=== PATIENT | female | born 1940 | race Caucasian/White ===

== ENCOUNTER → 2016-08-17 | Outpatient (CLI) | payer OTHER | LOC: MMPC 11:11 | PROVIDERS: ATTEND Internal Medicine | DX: E11.9 Type 2 diabetes mellitus without complications (principal); I50.9 Heart failure, unspecified; E78.5 Hyperlipidemia, unspecified; I48.2 Chronic atrial fibrillation | CPT/HCPCS: 83037; 99214; G0463 ==

== ENCOUNTER 2017-02-18 04:09 | Inpatient (IN) ==
[2017-02-18] MEDS ORDERED: Sodium Chloride 0.9% 1,000 ML PRIMARY IV ONE (04:28)
[2017-02-18] MEDS ORDERED: NORMAL SALINE 10 ML SYRINGE FLUSH IVP PRN ×2 (04:28→09:17)
--- NOTE | 2017-02-18 04:39 | PDOC ---
General Adult HPI - General Chief Complaint: Fall Stated Complaint: fall Date Seen by Provider: 02/18/17 Time Seen by Provider: 04:25 Source: POSITIVE: Patient Exam Limitations: POSITIVE: No limitations Nurse's Notes Reviewed & Considered: Yes - History of Present Illness Initial Comment: The patient is a 76-year-old female who is brought to the emergency department after she had fallen at home. She has a life alert that she activated after she had fallen in the bathroom and was unable to get up. She states that for the past week she has had increased pain with urination and blood in her urine. For that period of time she has also had subjective fevers and chills. She reports that she has become progressively weak. This morning she was in the bathroom and fell on the ground. She states this was a light fall. She was weak and unable to get up on her own and subsequently activated the life alert. She did not hit her head and denies any injury from the fall. She did not lay on the floor for a longer than 20 minutes. She denies any current chest pain or increased shortness of breath. She denies any current abdominal pain. She has had a cough which is occasionally productive. She is diabetic and states that she does not test her blood sugars. She does take eliquis for atrial fibrillation. She is also on digoxin. Have you received a tetanus shot in the past 10 years?: Yes - Patient Home Medications Home Medications: Home Medications Apixaban [Eliquis] 5 mg PO BID #180 tab 08/17/16 digoxin 125 mcg tablet 125 mcg PO QAM #90 tab 12/01/16 metoprolol tartrate 25 mg tablet 25 mg PO BID #180 tab 12/14/16 potassium chloride ER 20 mEq tablet,extended release(part/cryst) 20 meq PO QAM # 90 tab 12/14/16 omeprazole 40 mg capsule,delayed release 40 mg PO QDAY #30 cap 01/26/17 lisinopril 10 mg tablet 10 mg PO QDAY tab 02/15/17 metformin ER 750 mg tablet,extended release 24 hr 750 mg PO ONCE #90 tab Aspirin Chewable Tab 162 mg PO DAILY 02/18/17 - Patient Allergies Allergies/Adverse Reactions: Allergies 3 Allergy/AdvReac Type Severity Reaction Status Date / Time iodine [Iodine] Allergy Intermediate ITCHING Verified 02/18/17 04:24 Past Medical History - heen HEENT History: Denies History Cardiovascular History: Hypertension, Arrhythmia, Valvular Heart Disease Additional Cardiovasular History: Patient states she had rheumatic fever as a child, pt has chronic a-fib Respiratory History: Pneumonia Gastrointestinal History: Denies History Genitourinary History: Kidney Stones, Other (please comment) Additional Genitourinary History: STATES BLADDER STONE REMOVED IN 1967 Endocrine History: Denies History Musculoskeletal History: Arthritis Prosthesis or Implant: No Neurological History: CVA Additional Neurological History: STATES 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, has left sided weakness Blood Disorders: Denies History Psychiatric History: Denies History History of Sexually Transmitted Diseases: No Cancer History: Denies History History of MDRO: Yes History of Other Communicable Diseases: No Alcohol Use: None In the Past 12 Months, Have Used or Abuse Any Substance: None Previous Surgical History: Yes Type / Date of Surgery: BLADDER STONE REMOVED IN 1967, mitral valvuloplasty, total abdominal hysterectomy and bilateral oophorectomy and incedental appendectomy due to "a coil wrapped around my uterus" (?) Anesthesia Reactions: No Malignant Hyperthermia: No Significant Family History: Heart disease, Hypertension Past Medical History Reviewed: Reviewed - No Changes ROS - Limitations ROS Limitations: No Limitations Constitution: REPORTS: Chills, Fever, Weakness (Generalized) Cardiovascular: DENIES: Chest Pain, Heart Palpitations Respiratory: REPORTS: Cough Non Productive, Cough Productive. DENIES: Shortness Of Breath Neurological: DENIES: Headache Gastrointestinal: REPORTS: Diarrhea. DENIES: Abdominal Pain, Nausea, Vomitting , Black Stools, Bloody Stools Musculoskeletal: REPORTS: Denies MS Symptoms Genitourinary: REPORTS: Dysuria, Hematuria Eyes: REPORTS: Denies Symptoms ENT: REPORTS: Denies Symptoms Skin: DENIES: Rash General Adult Exam - General Appearance General Appearance: POSITIVE: Alert, Cooperative, No Acute Distress - HEENT HEENT: POSITIVE: Head Inspection Nml, Eyes Inspection Nml, Ears Inspection Nml, Dry Mucous Membranes - Respiratory Respiratory: POSITIVE: No Respiratory Distress, Breath Sounds Normal - Cardiovascular Cardiovascular: POSITIVE: Tachycardia, Murmur Peripheral Pulses: Dorsalis-pedis (R): 2+, Dorsalis-pedis (L): 2+ - Abdomen Abdomen: Soft: (All Quadrants), Denies Tenderness: (All Quadrants), No Distention: (All Quadrants) - Back Back: POSITIVE: Normal Inspection - Skin Skin: POSITIVE: Normal Color, No Rash - Extremities Extremity: Normal ROM: (All Extremities), Normal Inspection: (All Extremities) - Neurological / Psychological Neurological: POSITIVE: Oriented X3, Motor Normal, Sensation Normal General Adult Progress - Results Reviewed by me Xrays/CTs/US Reviewed by me: Yes Radiology Findings: Chest x-ray shows no obvious infiltrate. Lab Results Reviewed by Me: Yes CBC and BMP: 02/18/17 04:40 02/18/17 04:40 EKG Interpreted/Reviewed By Me:: Yes EKG Interpretation:: POSITIVE: Other (EKG shows atrial fibs/flutter with a rate of 120) - Patient's Progress MDM / ED Course: An IV was established, blood cultures and lactate were drawn with IV start. She did receive a 1 L bolus of normal saline. EKG shows A. fib/flutter with a rate of 120. Blood work reveals a normal white count and normal electrolytes. Her CPK is elevated above 2000. Urinalysis shows greater than 100 reds and 60- 80 whites. Urine culture is pending. The patient has generalized weakness and dehydration secondary to a UTI. At this point it seems most appropriate to admit the patient for further treatment. This was discussed with the patient and she is in agreement with this plan. Dr. Everett has agreed to admit the patient. She was started on Rocephin for treatment of UTI. - Consult Counseled: POSITIVE: Patient, RE: Lab Results, RE: Radiology Results, RE: DX Patient Care Time - Estimated PCT Patient Care Time (In Minutes): 35 Vital Signs - Recent Vital Signs Vital Signs: Vital Signs (Last 8 hours) Temp Pulse Resp BP Pulse Ox 02/18/17 05:05 120 H 20 91 02/18/17 04:40 98.3 F 121 H 20 130/79 89 02/18/17 04:10 98.3 F 121 H 20 130/79 89 - VS Reviewed Vital Signs Reviewed: Yes Discharge Clinical Impression: Atrial fibrillation, chronic, History of CVA (cerebrovascular accident), UTI ( urinary tract infection), Elevated CPK Discharge Disposition: Admit to Inpatient Condition: Fair Follow Up With: ELSI ORTEGA [Primary Care Provider] - Date Decision to Admit to Inpatient: 02/18/17 Time Decision to Admit to Inpatient: 07:00
--- NOTE | 2017-02-18 04:46 | EKG ---
[address] [place] [address] Measurements Intervals [place] Rate: 120 P: VA: 0 QRS: 92 QRSD: 122 T: -80 QT: 331 QTc: 402 Interpretive Statements ATRIAL FLUTTER/TACHYCARDIA WITH RAPID VENTRICULAR RESPONSE RIGHT BUNDLE BRANCH BLOCK LEFT VENTRICULAR HYPERTROPHY AND ST-T CHANGE POSSIBLE SEPTAL MYOCARDIAL INFARCTION , PROBABLY OLD Compared to ECG 02/22/2015 12:03:46 Right bundle-branch block now present Left ventricular hypertrophy now present Myocardial infarct finding now present ST (T wave) deviation still present Electronically Signed On 02-18-17 14:14:45 [facility] by Ramy Murphy [email or web address]
[2017-02-18 05:01] LABS: Hematocrit [HCT] 33.7 % (37.0-47.0); Hemoglobin [HGB] 10.9 g/dL (12.0-16.0); MEAN CORPUSCULAR HEMOGLOBIN 28.8 PG (27-31); MEAN CORPUSCULAR VOLUME 89 FL (81-99)
[2017-02-18 05:02] LABS: BASOPHILS # (AUTO) 0.01 10*3/UL; BASOPHILS % (AUTO) 0.2 % (0-1); EOSINOPHILS # (AUTO) 0.04 10*3/UL; EOSINOPHILS % (AUTO) 0.7 % (0-8); LYMPHOCYTES # (AUTO) 0.46 10*3/uL; MEAN CORPUSCULAR HGB CONC 32.5 g/dL (33-37); MEAN PLATELET VOLUME 7.6 FL (7.4-12.2); MONOCYTES # (AUTO) 0.48 10*3/UL (0.3-0.8); MONOCYTES % (AUTO) 7.9 % (5-15); NEUTROPHILS # (AUTO) 5.05 10*3/UL; NEUTROPHILS % (AUTO) 83.6 % (50-80); PLATELET MORPHOLOGY COMMENT NORMAL MORPHOLOGY (NORM); RBC MORPHOLOGY COMMENT NORMAL MORPHOLOGY (NORM); WBC MORPHOLOGY COMMENT NORMAL MORPHOLOGY (NORM)
[2017-02-18 05:08] LABS: BLOOD UREA NITROGEN 15 mg/dL (7-22); BUN/CREATININE RATIO 16.66 (6-20); MAGNESIUM 1.6 mg/dL (1.6-2.4)
[2017-02-18 06:14] LABS: RBC,URINE >100 /hpf; SQUAMOUS EPITHELIAL CELL,UR FEW; WBC,URINE 60-80
[2017-02-18 06:15] LABS: BACTERIA,URINE MANY; RENAL EPITHELIAL CELLS,URINE FEW; URINE CRYSTALS MODERATE
[2017-02-18] MEDS ORDERED: cefTRIAXone Inj 1 GM in Sodium Chloride 0.9% 100 ML IV ONE (07:00)
--- NOTE | 2017-02-18 09:04 | PDOC ---
HPI - History of Present Illness Date of Service: 02/18/17 Time of Service: 09:00 Chief Complaint: Fell last night, blood in the urine History of Present Illness: This is a 76 years old female with medical history significant for history of atrial fibrillation, hypertension, history of previous multiple strokes, history of previous mitral valve surgery and history of previous kidney stone and previous admission for UTI who was brought to the hospital because of a fall. She said she fell at home as she was changing her pad she said she didn't hurt herself but she was unable to get up. Because of that she activated her life alert and the medics brought her here to the hospital. In addition she did report blood in the urine she is denying though dysuria. She was weak and that' s why she was unable to get up. Evaluation in the ER revealed in addition to the hematuria an abnormal UA so she was given antibiotics and fluids and was admitted. She denied abdominal pain or dysuria. She has some cough but she said that's old. Past Medical History Medical History: 1. A. fib.2. Hypertension.3. Multiple strokes last one showed maybe 10-20 years ago the first she said she had it when she was 34 years old.4. History of multiple kidney stones.5. History of diabetes. 6. Admission in September 2014 for pneumonia 7. History of Escherichia coli bacteremia in 2013 secondary to urinary tract infection from an underlying right kidney stone Surgical History: 1. Mitral valvuloplasty.2. History of hysterectomy.3. History of appendectomy.4. History of kidneys stones with history of stent insertion and removal before. Family History: Reviewed an Not Pertinent Past Social History: Doesn't smoke, doesn't drink nor drugs. Lives in [facility]. She has 3 children. Tobacco Use: Never Smoker Do you dip or chew tobacco: No In the Past 12 Months, Have Used or Abuse Any of the Following Substance: None Alcohol Use: None Medication / Allergies Home Medications: Home Medications Medication Instructions Recorded Confirmed Type Apixaban [Eliquis] 5 mg PO BID #180 tab 08/17/16 02/18/17 Rx digoxin 125 mcg tablet 125 mcg PO QAM #90 tab 12/01/16 02/18/17 Rx metoprolol tartrate 25 mg tablet 25 mg PO BID #180 tab 12/14/16 02/18/17 Rx potassium chloride ER 20 mEq 20 meq PO QAM #90 tab 12/14/16 02/18/17 Rx tablet,extended release(part/cryst) omeprazole 40 mg capsule,delayed 40 mg PO QDAY #30 cap 01/26/17 02/18/17 Rx release lisinopril 10 mg tablet 10 mg PO QDAY tab 02/15/17 02/18/17 History metformin ER 750 mg 750 mg PO ONCE #90 tab 02/15/17 02/18/17 Rx tablet,extended release 24 hr Aspirin Chewable Tab 162 mg PO DAILY 02/18/17 02/18/17 History Allergies/Adverse Reactions: Allergies 3 Allergy/AdvReac Type Severity Reaction Status Date / Time iodine [Iodine] Allergy Intermediate ITCHING Verified 02/18/17 08:51 Review of Systems - Review of Systems All Systems: Reviewed & No Additional Complaints Except as Stated Exam - Vitals Vital Signs: Vital Signs Temperature 99.8 F Temperature Source Oral Pulse Rate [Pulse Oximeter 110 Left] Respiratory Rate 22 Blood Pressure [Left Arm] 133/78 Pulse Ox 99 Oxygen Flow Rate 2 Oxygen Delivery Method Nasal Cannula Weight 160 lb 1.6 oz - General General Appearance: No Acute Distress, Cooperative - Head Head Exam: Normal Inspection - Eye Eye Exam: POSITIVE: Normal Appearance - ENT ENT Exam: POSITIVE: Mucous Membranes Dry - Neck Neck Exam: Normal Inspection - Respiratory Additional Respiratory Exam Details: Harsh breath sound here. No crackles. - Cardiovascular Cardiovascular Exam: POSITIVE: Irregular Rhythm, Tachycardia, Systolic Murmur - GI/Abdominal GI/Abdominal Exam: POSITIVE: Normal Bowel Sounds, Non Tender, Non Distended, Soft, No Organomegaly - Rectal Rectal Exam: POSITIVE: Deferred - External Exam: POSITIVE: Deferred - Extremities Extremities Exam: POSITIVE: Normal Inspection - Back Back Exam: POSITIVE: Normal Inspection - Neurological Neurological Exam: POSITIVE: Alert, Oriented x 3, CN II-XII Intact Additional Neurological Exam Details: She has dysarthria and left lower leg weakness which is old. However she generally weak also. She has a left facial droop also - Psychiatric Psychiatric Exam: POSITIVE: Normal Affect - Integumentary Integumentary Exam: POSITIVE: Dry Results - Labs CBC and BMP: 02/18/17 04:40 02/18/17 04:40 Assessment and Plan - Patient Problems (1) UTI (urinary tract infection) Current Visit: Yes Status: Acute Comment: she has UTI. But because of the predominant hematuria will do a CT of her abdomen to look for stones. She does have a history of stones and she said she had some surgery for it although I don't have a documentation of it. She got the Rocephin will puts her on Zosyn and continue with IV fluid. Code(s): N39.0 - Urinary tract infection, site not specified (2) Atrial fibrillation, chronic Current Visit: Yes Status: Acute Comment: Rate is not controlled will give her medication part of it being uncontrolled may be secondary to the dehydration/infection will give us her fluid. Code(s): I48.2 - Chronic atrial fibrillation (3) Rhabdomyolysis Current Visit: No Status: Acute Comment: There is mild rhabdomyolysis from the fall she is on fluid will repeat her labs Code(s): M62.82 - Rhabdomyolysis (4) Diabetes Current Visit: Yes Status: Acute Comment: We'll hold her metformin for now. We'll check her blood sugar. Code(s): E11.9 - Type 2 diabetes mellitus without complications
[2017-02-18] MEDS ORDERED: LIDOCAINE W/ SODIUM BICARB 0.5 ML SYR SUBD PRN (09:17)
[2017-02-18] MEDS ORDERED: Metoprolol TARTRATE Tab 25 MG TAB PO SCH (09:20)
[2017-02-18] MEDS ORDERED: DIGOXIN 125 MCG TABLET PO SCH (09:30)
[2017-02-18] MEDS ORDERED: OMEPRAZOLE 40 MG CAPSULE PO SCH (09:30)
[2017-02-18] MEDS ORDERED: Sodium Chloride 0.9% 1,000 ML PRIMARY IV SCH (09:30)
[2017-02-18 10:15] VITALS: RESP 20
[2017-02-18] MEDS ORDERED: ACETAMINOPHEN 325 MG TABLET PO PRN (11:35)
[2017-02-18] MEDS ORDERED: Piperacillin/Tazobactam Inj 3.375 GM in Sodium Chloride 0.9% 100 ML IV SCH ×2 (11:45→12:00)
[2017-02-18] MEDS ORDERED: Piperacillin/Tazobactam Inj 4.5 GM in Sodium Chloride 0.9% 100 ML IV SCH (11:45)
--- NOTE | 2017-02-18 14:59 | DI ---
CT Abdomen/Pelvis WO Contrast,02/18/2017 9:22 AM: Clinical History: Hematuria. Previous Exam: February 17, 2015 Findings: Multiple helically acquired CT images are obtained through the abdomen and pelvis without contrast, a nd demonstrate stones within the dilated renal pelves bilaterally. There are multiple other renal parenchymal stones seen. The obstructive stones within each kidney are seen at the ureteropelvic junction. The one on the right measures 1 cm in long axis. The obstructive stone on the left measures 8 mm in diameter. There is a large simple cyst noted exophytic within the left kidney stable from the prior exam. There is some perinephric fat stranding noted. The liver and spleen are unremarkable. Subsegmental atelectasis is seen in the lung bases. There is m assive cardiomegaly which is unchanged. There is no free air nor free fluid. The urinary bladder is unremarkable. Skeletal structures are unremarkable except for some loss of int ervertebral disc height at multiple levels and endplate osteophyte formation. There is facet arthropa thy noted as well there are bilateral L5 pars defects as well. Impression: Large partially obstructive stones within the ureteropelvic junctions bilaterally. These appear too l arge to pass. Recommend consultation with urology for possible lithotripsy.
[2017-02-18 16:43] VITALS: BP 109/52; TEMP 98.6; O2SAT 97
--- NOTE | 2017-02-18 16:51 | DCSUMMARY ---
Hospitalization Summary Admit Date: 02/18/2017 Discharge Date: 02/18/17 Hospital Course: Transfer diagnoses 1. UTI looks like pyelonephritis 2. Large partially obstructive stones within the ureteropelvic junctions bilaterally 3. History of A. fib 4. History of multiple strokes that caused predominantly left leg weakness 5. History of Escherichia coli bacteremia in 2013 6. History of kidney stones before 7. History of Mitral valvuloplasty Hospital course This is a 76 years old female with medical history significant for history of atrial fibrillation, hypertension, history of previous multiple strokes, history of previous mitral valve surgery and history of previous kidney stone and previous admission for UTI who was brought to the hospital because of a fall. She said she fell at home as she was changing her pad she said she didn't hurt herself but she was unable to get up. Because of that she activated her life alert and the medics brought her here to the hospital. In addition she did report blood in the urine she is denying though dysuria. She was weak and that' s why she was unable to get up. Evaluation in the ER revealed in addition to the hematuria an abnormal UA so she was given antibiotics and fluids and was admitted. She denied abdominal pain or dysuria. She had some cough but she said that's old. When I saw her exam was remarkable for looking dry. She had some weakness mostly in the left lower extremity. She had also some left facial droop which is old old. We started her on Zosyn. She did already received Rocephin in the ER. While she was here her temperature went up to 101.4. She was initially tachycardic flutter/fibrillation but with fluid and by giving her, her usual medication the rate did come down. I did a CT of the abdomen because of her history of previous kidney stones and that did show large partial obstructive stones within the ureteropelvic junctions bilaterally. Because of that I did speak with the urologist at [facility] and he suggested transfer for stent insertion. I did speak with the hospitalist Dr. Brantley and he accepted the patient the patient will be transferred at one point in time. I did explain that to the patient and she agreed on transfer. Laboratory Results 02/18/17 02/18/17 02/18/17 Range/Units 04:30 04:40 04:40 WBC 6.0 (4.8-10.8) 10^3/uL RBC 3.80 L (4.20-5.40) 10^6/uL Hgb 10.9 L (12.0-16.0) g/dL Hct 33.7 L (37.0-47.0) % MCV 89 (81-99) FL MCH 28.8 (27-31) PG MCHC 32.5 L (33-37) g/dL RDW Coeff of Silvestre 13.6 (11.5-14.5) % Plt Count 232 (140-350) 10*3/uL MPV 7.6 (7.4-12.2) FL Neut % (Auto) 83.6 H (50-80) % Lymph % (Auto) 7.6 L (10-50) % Garrard % (Auto) 7.9 (5-15) % Eos % (Auto) 0.7 (0-8) % Baso % (Auto) 0.2 (0-1) % Neut # (Auto) 5.05 10*3/UL Lymph # (Auto) 0.46 10*3/uL Garrard # (Auto) 0.48 (0.3-0.8) 10*3/UL Eos # (Auto) 0.04 10*3/UL Baso # (Auto) 0.01 10*3/UL WBC Morphology Comment Normal morphology (NORM) Plt Morphology Comment Normal morphology (NORM) RBC Morph Comment Normal morphology (NORM) PT 11.4 (9.7-11.4) secs INR 1.07 (0.00-5.90) N/A Sodium (135-145) meq/L Potassium (3.8-5.2) meq/L Chloride (98-112) meq/L Carbon Dioxide (23-33) meq/L Anion Gap (5-20) BUN (7-22) mg/dL Creatinine (0.50-1.20) mg/dL BUN/Creatinine Ratio (6-20) Glucose (78-110) mg/dL Calculated Osmolality (267-292) mOsm/kg Lactic Acid (0.70-2.10) MMOL/L Calcium (8.7-10.7) mg/dL Magnesium (1.6-2.4) mg/dL Total Bilirubin (0.3-1.2) mg/dL AST (8-39) IU/L ALT (9-52) IU/L Alkaline Phosphatase (38-126) IU/L Total Creatine Kinase (30-136) IU/L Troponin I (< 0.040) ng/mL C-Reactive Protein (0.0-0.9) mg/dL Total Protein (6.1-8.0) g/dL Albumin (3.5-4.8) g/dL Globulin (2.50-4.10) g/dL Albumin/Globulin Ratio (1.3-2.0) mg/g Urine RBC (NONE) /hpf Urine WBC (NONE) Ur Squamous Epith Cells (NONE) Ur Renal Epithelial Cell (NONE) Urine Crystals Urine Bacteria (NONE) Urine Casts Urine Mucus (NONE) Urine Trichomonas (NONE) Urine Yeast (NONE) Digoxin 0.6 L (0.8-2.0) ng/mL 02/18/17 02/18/17 02/18/17 Range/Units 04:40 04:40 04:40 WBC (4.8-10.8) 10^3/uL RBC (4.20-5.40) 10^6/uL Hgb (12.0-16.0) g/dL Hct (37.0-47.0) % MCV (81-99) FL MCH (27-31) PG MCHC (33-37) g/dL RDW Coeff of Silvestre (11.5-14.5) % Plt Count (140-350) 10*3/uL MPV (7.4-12.2) FL Neut % (Auto) (50-80) % Lymph % (Auto) (10-50) % Garrard % (Auto) (5-15) % Eos % (Auto) (0-8) % Baso % (Auto) (0-1) % Neut # (Auto) 10*3/UL Lymph # (Auto) 10*3/uL Garrard # (Auto) (0.3-0.8) 10*3/UL Eos # (Auto) 10*3/UL Baso # (Auto) 10*3/UL WBC Morphology Comment (NORM) Plt Morphology Comment (NORM) RBC Morph Comment (NORM) PT (9.7-11.4) secs INR (0.00-5.90) N/A Sodium 142 (135-145) meq/L Potassium 3.8 (3.8-5.2) meq/L Chloride 105 (98-112) meq/L Carbon Dioxide 25 (23-33) meq/L Anion Gap 12 (5-20) BUN 15 (7-22) mg/dL Creatinine 0.9 (0.50-1.20) mg/dL BUN/Creatinine Ratio 16.66 (6-20) Glucose 182 H (78-110) mg/dL Calculated Osmolality 299.0 H (267-292) mOsm/kg Lactic Acid 1.2 (0.70-2.10) MMOL/L Calcium 9.5 (8.7-10.7) mg/dL Magnesium 1.6 (1.6-2.4) mg/dL Total Bilirubin 1.1 (0.3-1.2) mg/dL AST 69 H (8-39) IU/L ALT 45 (9-52) IU/L Alkaline Phosphatase 197 H (38-126) IU/L Total Creatine Kinase 2392 H (30-136) IU/L Troponin I 0.028 (< 0.040) ng/mL C-Reactive Protein 3.4 H (0.0-0.9) mg/dL Total Protein 7.8 (6.1-8.0) g/dL Albumin 4.0 (3.5-4.8) g/dL Globulin 3.8 (2.50-4.10) g/dL Albumin/Globulin Ratio 1.00 L (1.3-2.0) mg/g Urine RBC (NONE) /hpf Urine WBC (NONE) Ur Squamous Epith Cells (NONE) Ur Renal Epithelial Cell (NONE) Urine Crystals Urine Bacteria (NONE) Urine Casts Urine Mucus (NONE) Urine Trichomonas (NONE) Urine Yeast (NONE) Digoxin (0.8-2.0) ng/mL 02/18/ Range/Units 04:45 WBC (4.8-10.8) 10^3/uL RBC (4.20-5.40) 10^6/uL Hgb (12.0-16.0) g/dL Hct (37.0-47.0) % MCV (81-99) FL MCH (27-31) PG MCHC (33-37) g/dL RDW Coeff of Silvestre (11.5-14.5) % Plt Count (140-350) 10*3/uL MPV (7.4-12.2) FL Neut % (Auto) (50-80) % Lymph % (Auto) (10-50) % Garrard % (Auto) (5-15) % Eos % (Auto) (0-8) % Baso % (Auto) (0-1) % Neut # (Auto) 10*3/UL Lymph # (Auto) 10*3/uL Garrard # (Auto) (0.3-0.8) 10*3/UL Eos # (Auto) 10*3/UL Baso # (Auto) 10*3/UL WBC Morphology Comment (NORM) Plt Morphology Comment (NORM) RBC Morph Comment (NORM) PT (9.7-11.4) secs INR (0.00-5.90) N/A Sodium (135-145) meq/L Potassium (3.8-5.2) meq/L Chloride (98-112) meq/L Carbon Dioxide (23-33) meq/L Anion Gap (5-20) BUN (7-22) mg/dL Creatinine (0.50-1.20) mg/dL BUN/Creatinine Ratio (6-20) Glucose (78-110) mg/dL Calculated Osmolality (267-292) mOsm/kg Lactic Acid (0.70-2.10) MMOL/L Calcium (8.7-10.7) mg/dL Magnesium (1.6-2.4) mg/dL Total Bilirubin (0.3-1.2) mg/dL AST (8-39) IU/L ALT (9-52) IU/L Alkaline Phosphatase (38-126) IU/L Total Creatine Kinase (30-136) IU/L Troponin I (< 0.040) ng/mL C-Reactive Protein (0.0-0.9) mg/dL Total Protein (6.1-8.0) g/dL Albumin (3.5-4.8) g/dL Globulin (2.50-4.10) g/dL Albumin/Globulin Ratio (1.3-2.0) mg/g Urine RBC >100 (NONE) /hpf Urine WBC 60-80 (NONE) Ur Squamous Epith Cells Few (NONE) Ur Renal Epithelial Cell Few (NONE) Urine Crystals Moderate Urine Bacteria Many (NONE) Urine Casts None Urine Mucus None (NONE) Urine Trichomonas None (NONE) Urine Yeast None (NONE) Digoxin (0.8-2.0) ng/mL Discharge instruction Diet nothing by mouth Activity bedrest Medications Active Medications Acetaminophen (Tylenol) 650 mg PO Q6H PRN PRN Reason: pain/fever Apixaban (Eliquis) 5 mg PO BID [facility] Digoxin (Lanoxin) 125 mcg PO DAILY [facility] Last Admin: 02/18/17 09:54 Dose: 125 mcg Sodium Chloride (Normal Saline) 1,000 mls @ 125 mls/hr PRIMARY IV .Q8H [facility] Last Admin: 02/18/17 09:56 Dose: 125 mls/hr Piperacillin Sod/Tazobactam (Sod 3.375 gm/ Sodium Chloride) 100 mls @ 200 mls/ hr IV Q6H [facility] Last Admin: 02/18/17 12:28 Dose: 200 mls/hr Lidocaine HCl (Lidocaine Buffered Inj) 0.5 ml SUBD ONCE PRN PRN Reason: IV Starts Lisinopril (Prinivil) 10 mg PO DAILY [facility] Metoprolol Tartrate (Lopressor Tab) 25 mg PO BID [facility] Last Admin: 02/18/17 09:54 Dose: 25 mg Omeprazole (Prilosec) 40 mg PO DAILY [facility] Last Admin: 02/18/17 09:54 Dose: 40 mg Sodium Chloride (Saline Flush) 5 - 20 ml IVP BID PRN PRN Reason: Flush Last Admin: 02/18/17 09:55 Dose: 10 ml Follow-up per [facility] post discharge Condition at transfer was stable for transfer Exam - Vitals Vital Signs: Vital Signs Temperature 98.6 F Temperature Source Temporal Artery Scan Pulse Rate [Apical] 108 Pulse Rate [Pulse Oximeter 67 Left] Pulse Rate 59 Respiratory Rate 20 Blood Pressure [Left Arm] 109/52 Blood Pressure 174/80 Pulse Ox 97 Oxygen Flow Rate 2 Oxygen Delivery Method Nasal Cannula Height 5 ft 2 in Weight 160 lb 3.2 oz Patient Problems - Patient Problem List (1) UTI (urinary tract infection) Current Visit: Yes Status: Acute Code(s): N39.0 - Urinary tract infection, site not specified Category: Medical (2) Atrial fibrillation, chronic Current Visit: Yes Status: Acute Comment: Continue eloquis Code(s): I48.2 - Chronic atrial fibrillation Category: Medical (3) Rhabdomyolysis Current Visit: No Status: Acute Code(s): M62.82 - Rhabdomyolysis Category : Medical (4) Diabetes Current Visit: Yes Status: Acute Code(s): E11.9 - Type 2 diabetes mellitus without complications Category: Medical
[2017-02-18] MEDS ORDERED: Apixaban 5 MG TABLET PO SCH (21:00)
[2017-02-19] MEDS ORDERED: LISINOPRIL 10 MG TABLET PO SCH (09:00)
[2017-02-19] MEDS ORDERED: cefTRIAXone Inj 2 GM in Sodium Chloride 0.9% 100 ML IV SCH (09:00)
== END 2017-02-18 17:32 | disposition short-term general hospital (02) | DRG 690 ==
LOC: ER 04:09 → MED/SURG 07:02
PROVIDERS: ADMIT Internal Medicine; ATTEND Internal Medicine